=== PATIENT | female | born 1965 | race American Indian/Alaskan Native ===

== ENCOUNTER 2023-08-04 12:35 | Emergency (ER) | payer OTHER ==
--- NOTE | 2023-08-04 12:52 | ER ---
Nurse's Notes [facility] Name: Vivi Cole Age: 58 yrs Sex: Female : 1965 Arrival Date: 08/04/2023 Time: 12:35 Bed 13 Private MD: Diagnosis: Otitis media, unspecified, right ear Presentation: 08/04 12:49 Chief complaint: Right ear pain x 1 week. Coronavirus screen: At this time, the client jl7 does not indicate any symptoms associated with coronavirus-19. Ebola Screen: No symptoms or risks identified at this time. Initial Sepsis Screen: Does the patient meet any 2 criteria? No. Patient's initial sepsis screen is negative. Does the patient have a suspected source of infection? No. Patient's initial sepsis screen is negative. Risk Assessment: Do you want to hurt yourself or someone else? Patient reports no desire to harm self or others. Onset of symptoms was July 28, 2023. 12:49 Method Of Arrival: Ambulatory [facility] 12:49 Acuity: KYRIE 4 jl7 Historical: - Allergies: 12:50 No Known Allergies; jl7 - Immunization history:: Adult Immunizations up to date. - Social history:: Smoking status: Patient denies any tobacco usage or history of. Screenin:03 [facility] ED Fall Risk Assessment (Adult) History of falling in the last 3 months, mb9 including since admission No falls in past 3 months (0 pts) Confusion or Disorientation No (0 pts) Intoxicated or Sedated No (0 pts) Impaired Gait No (0 pts) Mobility Assist Device Used No (0 pt) Altered Elimination No (0 pt) Score/Fall Risk Level 0 - 2 = Low Risk Oriented to surroundings, Maintained a safe environment, Educated pt \T\ family on fall prevention, incl call for assistance when getting out of bed. Abuse screen: Denies threats or abuse. Nutritional screening: No deficits noted. Tuberculosis screening: No symptoms or risk factors identified. Assessment: 13:02 Pain: Complains of pain in right ear Quality of pain is described as throbbing, Pain mb9 began suddenly, Is continuous. Neuro: Vee Agitation-Sedation Scale (RASS): 0 - Alert and Calm Level of Consciousness is awake, alert, obeys commands, Oriented to person, place, time, situation, Appropriate for age. Cardiovascular: Patient's skin is warm and dry. Respiratory: Airway is patent Respiratory effort is even, unlabored, Respiratory pattern is regular, symmetrical, Breath sounds are clear bilaterally. 13:03 GI: No signs and/or symptoms were reported involving the gastrointestinal system. EENT: mb9 Ear canal w/ drainage noted from right ear. Derm: Skin is pink, warm \T\ dry. Musculoskeletal: Range of motion: intact in all extremities. Vital Signs: 12:49 BP 161 / 93; Pulse 104; Resp 16; Temp 98.6(O); Pulse Ox 97% on R/A; Weight 79.38 kg; jl7 Height 5 ft. 6 in. ; Pain 8/10; 12:49 Body Mass Index 28.25 (79.38 kg, 167.64 cm) jl7 12:49 Pain Scale: Adult 7 ED Course: 12:43 Patient arrived in ED. mg5 12:44 Benita Griffin [facility]-C [facility]. sb4 12:44 Chacho Carrillo MD is Attending Physician. sb4 12:50 Triage completed. jl7 12:50 Arm band placed on. jl7 13:03 Regine Salas, KRISTI is Primary Nurse. mb9 13:04 Placed in gown. Bed in low position. Call light in reach. Side rails up X 1. Client mb9 placed on continuous cardiac and pulse oximetry monitoring. NIBP monitoring applied. 13:05 No provider procedures requiring assistance completed. Patient did not have IV access mb9 during this emergency room visit. Administered Medications: No medications were administered Medication: 13:04 VIS not applicable for this client. mb9 Outcome: 12:51 Discharge ordered by . sb4 13:04 Discharged to home ambulatory. mb9 13:04 Condition: stable 13:04 Discharge instructions given to patient, Instructed on discharge instructions, follow up and referral plans. Demonstrated understanding of instructions, follow-up care, medications, Prescriptions given X 1. 13:05 Patient left the ED. mb9 Signatures: Niurka Gutierrez RN RN [id number] Benita Griffin PA-C PA-C sb4 Regine Salas RN RN [id number] Maria Fernanda Perez mg5 Corrections: (The following items were deleted from the chart) 13:03 13:02 Respiratory: Airway is patent Respiratory effort is even, unlabored, Respiratory mb9 pattern is regular, symmetrical, Breath sounds are clear bilaterally. mb9
--- NOTE | 2023-08-04 12:52 | EDPHYS ---
Physician Documentation [facility] Name: Vivi Cole Age: 58 yrs Sex: Female : 1965 Arrival Date: 08/04/2023 Time: 12:35 Bed 13 Private MD: Chacho Cain HPI: 08/04 12:52 This 58 yrs old Female presents to ER via Ambulatory with complaints of Ear Pain - sb4 Right. 12:52 The patient presents with pain, that is acute. The complaints affect the right ear. sb4 Onset: The symptoms/episode began/occurred 1 week(s) ago. Modifying factors: The symptoms are alleviated by nothing, the symptoms are aggravated by nothing. Associated signs and symptoms: The patient has no apparent associated signs or symptoms. The patient has not experienced similar symptoms in the past. The patient has not recently seen a physician. Historical: - Allergies: 12:50 No Known Allergies; jl7 - Immunization history:: Adult Immunizations up to date. - Social history:: Smoking status: Patient denies any tobacco usage or history of. ROS: 12:52 Constitutional: Negative for fever, chills, and weight loss. sb4 12:52 ENT: Positive for ear pain. 12:52 All other systems are negative. Exam: 12:52 Constitutional: This is a well developed, well nourished patient who is awake, alert, sb4 and in no acute distress. Head/Face: Normocephalic, atraumatic. Eyes: Extra-ocular motions intact. Periorbital areas with no swelling, redness, or edema. Skin: Warm, dry with normal turgor. Normal color with no rashes, no lesions, and no evidence of cellulitis. MS/ Extremity: Pulses equal, no cyanosis. Neurovascular intact. Full, normal range of motion. Neuro: Awake and alert, GCS 15, oriented to person, place, time, and situation. Cranial nerves II-XII grossly intact. Motor strength 5/5 in all extremities. Sensory grossly intact. Cerebellar exam normal. Normal gait. 12:52 ENT: External ear(s): are unremarkable, Ear canal(s): are normal, TM's: bulging, on the right, erythema, that is moderate, on the right, Examination of the other ear shows no obvious abnormality. Vital Signs: 12:49 BP 161 / 93; Pulse 104; Resp 16; Temp 98.6(O); Pulse Ox 97% on R/A; Weight 79.38 kg; jl7 Height 5 ft. 6 in. ; Pain 8/10; 12:49 Body Mass Index 28.25 (79.38 kg, 167.64 cm) jl7 12:49 Pain Scale: Adult jl7 MDM: 12:45 Patient medically screened. [facility] 12:52 Differential diagnosis: otitis media, otitis externa, foreign body, acute otalgia, sb4 cerumen impaction. Data reviewed: vital signs, nurses notes, and as a result, I will discharge patient. Counseling: I had a detailed discussion with the patient and/or guardian regarding the historical points, exam findings, and any diagnostic results supporting the discharge/admit diagnosis, to return to the emergency department if symptoms worsen or persist or if there are any questions or concerns that arise at home. Administered Medications: No medications were administered Disposition Summary: 08/04/23 12:51 Discharge Ordered Location: Home sb4 Problem: new sb4 Symptoms: are unchanged sb4 Condition: Stable sb4 Diagnosis - Otitis media, unspecified, right ear sb4 Followup: sb4 - With: Private Physician - When: As needed - Reason: Recheck today's complaints, Continuance of care, Re-evaluation by your physician Discharge Instructions: - Discharge Summary Sheet sb4 - Otitis Media, Adult sb4 Forms: - Medication Reconciliation Form sb4 - Thank You Letter sb4 - Antibiotic Education sb4 - Prescription Opioid Use sb4 - Patient Portal Instructions sb4 - Leadership Thank You Letter sb4 Prescriptions: - Amoxicillin 875 mg Oral Tablet - take 1 tablet by ORAL route every 12 hours for 10 days; 20 tablet; Refills: 0, sb4 Product Selection Permitted Signatures: Chacho Carrillo MD MD cha Leal, Jahala RN RN jl7 Benita Griffin PA-C PA-C sb4
[2023-08-04 13:10] VITALS: BP 161/93; TEMP 98.6; O2SAT 97
== END 2023-08-04 13:05 | disposition home or self-care (01) ==
LOC: ER 12:35
DX: H66.91 Otitis media, unspecified, right ear (principal)
CPT/HCPCS: 99283